=== PATIENT | female | born 1965 | race Caucasian/White ===

== ENCOUNTER 2018-09-28 10:16 | Emergency (ER) | payer OTHER ==
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
[2018-09-28] MEDS ORDERED: LIDOCAINE 4%/MENTHOL 1% PATCH TD ONE (10:49)
[2018-09-28 14:03] VITALS: BP 116/74
[2018-09-28] MEDS ORDERED: PATCH REMOVAL 1 EA PATCH TD SCH (21:00)
== END 2018-09-28 14:08 | disposition home or self-care (01) ==
DX: R51 Headache (principal); M54.5 Low back pain; V59.40XA Driver of pick-up truck or van injured in collision with unspecified motor vehicles in traffic accident, initial encounter; Y92.410 Unspecified street and highway as the place of occurrence of the external cause; Y93.9 Activity, unspecified; Y99.9 Unspecified external cause status